=== PATIENT | female | born 1965 | race Hispanic/Latino ===

== ENCOUNTER 2017-04-18 08:10 | Outpatient (CLI) | payer BC ==
[2017-04-18] MEDS ORDERED: XYLOCAINE TOPICAL 4% TP ONE ×2 (08:43→14:18)
== END 2017-04-18 08:11 | disposition home or self-care (01) ==
LOC: WOUND 08:10
PROVIDERS: ATTEND Nurse Practitioner
DX: L97.221 Non-pressure chronic ulcer of left calf limited to breakdown of skin (principal); L97.511 Non-pressure chronic ulcer of other part of right foot limited to breakdown of skin; L97.111 Non-pressure chronic ulcer of right thigh limited to breakdown of skin; L23.89 Allergic contact dermatitis due to other agents; L30.8 Other specified dermatitis; Z87.891 Personal history of nicotine dependence; Z90.710 Acquired absence of both cervix and uterus
CPT/HCPCS: 11042; 87075; 87116; G0463

== ENCOUNTER 2017-04-25 08:22 | Outpatient (CLI) | payer BC ==
[2017-04-25] MEDS ORDERED: XYLOCAINE TOPICAL 4% TP ONE ×2 (09:20→09:31)
== END 2017-04-25 08:23 | disposition home or self-care (01) ==
LOC: WOUND 08:22
PROVIDERS: ATTEND Nurse Practitioner
DX: L97.821 Non-pressure chronic ulcer of other part of left lower leg limited to breakdown of skin (principal); L97.511 Non-pressure chronic ulcer of other part of right foot limited to breakdown of skin; L30.8 Other specified dermatitis; L29.8 Other pruritus; Z90.710 Acquired absence of both cervix and uterus; Z87.891 Personal history of nicotine dependence

== ENCOUNTER 2017-05-02 08:02 | Outpatient (CLI) | payer BC ==
[2017-05-02] MEDS ORDERED: XYLOCAINE TOPICAL 2% ONE (08:31)
[2017-05-02] MEDS ORDERED: XYLOCAINE TOPICAL 2% TP ONE (09:00)
== END 2017-05-02 08:03 | disposition home or self-care (01) ==
LOC: WOUND 08:02
PROVIDERS: ATTEND Surgery
DX: L97.511 Non-pressure chronic ulcer of other part of right foot limited to breakdown of skin (principal); L97.521 Non-pressure chronic ulcer of other part of left foot limited to breakdown of skin; L97.221 Non-pressure chronic ulcer of left calf limited to breakdown of skin; L23.89 Allergic contact dermatitis due to other agents; L30.8 Other specified dermatitis; L29.8 Other pruritus; Z87.891 Personal history of nicotine dependence; Z90.710 Acquired absence of both cervix and uterus
CPT/HCPCS: 99214; G0463

== ENCOUNTER 2017-05-09 08:02 | Outpatient (CLI) | payer BC ==
[2017-05-09] MEDS ORDERED: XYLOCAINE TOPICAL 2% ONE (08:20)
[2017-05-09] MEDS ORDERED: XYLOCAINE TOPICAL 2% TP ONE (08:32)
== END 2017-05-09 08:03 | disposition home or self-care (01) ==
LOC: WOUND 08:02
PROVIDERS: ATTEND Nurse Practitioner
DX: L97.521 Non-pressure chronic ulcer of other part of left foot limited to breakdown of skin (principal); L23.89 Allergic contact dermatitis due to other agents; L30.8 Other specified dermatitis; L29.8 Other pruritus; Z87.891 Personal history of nicotine dependence

== ENCOUNTER 2017-05-16 08:00 | Outpatient (CLI) | payer BC | END 2017-05-16 08:01 | disposition home or self-care (01) | LOC: WOUND 08:00 | PROVIDERS: ATTEND Nurse Practitioner | DX: L97.511 Non-pressure chronic ulcer of other part of right foot limited to breakdown of skin (principal); L97.521 Non-pressure chronic ulcer of other part of left foot limited to breakdown of skin; L23.89 Allergic contact dermatitis due to other agents; L30.8 Other specified dermatitis; L29.8 Other pruritus; Z87.891 Personal history of nicotine dependence | CPT/HCPCS: 99213; G0463 ==

== ENCOUNTER 2017-08-08 08:00 | Outpatient (CLI) | payer BC ==
[2017-08-08] MEDS ORDERED: XYLOCAINE TOPICAL 4% TP ONE (08:18)
== END 2017-08-08 08:01 | disposition home or self-care (01) ==
LOC: WOUND 08:00
PROVIDERS: ATTEND Nurse Practitioner
DX: P35.2 Congenital herpesviral [herpes simplex] infection (principal); Z90.710 Acquired absence of both cervix and uterus; Z87.891 Personal history of nicotine dependence
CPT/HCPCS: 87075; 87116; G0463; 87076; 87186; 99215

== ENCOUNTER 2017-08-22 08:02 | Outpatient (CLI) | payer BC | END 2017-08-22 08:03 | disposition home or self-care (01) | LOC: WOUND 08:02 | PROVIDERS: ATTEND Nurse Practitioner | DX: P35.2 Congenital herpesviral [herpes simplex] infection (principal); Z90.710 Acquired absence of both cervix and uterus; Z87.891 Personal history of nicotine dependence | CPT/HCPCS: 99213; G0463 ==